=== PATIENT | female | born 1940 | race Caucasian/White ===

== ENCOUNTER 2017-10-15 09:11 | Inpatient (IN) ==
[~2017-10-15 09:11] MED LIST: LACTULOSE 20 GM/30 ML UDCUP PO PRN
[2017-10-15 09:42] LABS: Basophils % 0.5 % (0.0-0.8); Hematocrit 26.5 VOL% (35.7-47.0); Hemoglobin 8.9 GM/DL (12.0-16.0); Immature Granulocytes % 7.8 %; Immature Granulocytes Absolute 0.43 #; Lymphocytes # 1.2 10*3/uL (1.4-4.0); Lymphocytes % 22.2 % (21.3-54.2); Mean Corpuscular HGB Conc 33.6 GM/DL (32-36); Mean Corpuscular Hemoglobin 34 PG (27-34); Mean Corpuscular Volume 101.1 FL (87-102); Monocytes # 0.1 10*3/uL (0.11-0.8); Monocytes % 1.6 % (1.7-12.7); Neutrophils # 3.8 10*3/uL (1.4-7.4); Neutrophils % 67.9 % (38.7-73.9); Platelet Count 95 T/CUMM (130-400); Red Blood Count 2.62 MC/CUMM (3.8-5.5); Red Cell Distribution Width 18.3 % (9.3-17.3); White Blood Count 5.5 T/CUMM (4-12)
[2017-10-15] MEDS ORDERED: MEROPENEM 500 MG in SODIUM CHLORIDE 0.9% 100 ML IV STA (09:49)
[2017-10-15 10:00] LABS: Albumin 2.1 G/DL (3.4-5.0); Calcium 9.4 MG/DL (8.5-10.1); Osmolality,Calculated 274.4 MOS/KG (273-304); Potassium 4.2 MMOL/L (3.5-5.1); Total Protein 5.6 G/DL (6.4-8.3)
[2017-10-15 10:14] LABS: Band Neutrophils 3 % (0-10); Lymphocytes 33 % (20-55); Segmented Neutrophils 59 % (50-85); Total Cells Counted 100
[2017-10-15 10:18] LABS: Platelet Estimate Adequate
[2017-10-15] MEDS ORDERED: guaiFENesin 200 MG/10 ML UDCUP PO PRN (10:39)
[2017-10-15] MEDS ORDERED: MYLANTA/LIDO VISC 2:1 300 ML BOTTLE SWISH/SWAL PRN (10:39)
[2017-10-15] MEDS ORDERED: LOPERAMIDE 2 MG CAPSULE PO PRN ×2 (10:39)
[2017-10-15] MEDS ORDERED: MYLANTA/LIDO VISC 2:1 300 ML BOTTLE SWISH/SPIT PRN (10:39)
[2017-10-15] MEDS ORDERED: MAGNESIUM HYDROXIDE SUSP 30 ML UDCUP PO PRN (10:39)
[2017-10-15] MEDS ORDERED: chlorproMAZINE INJ 50 MG in SODIUM CHLORIDE 0.9% 100 ML IV PRN (10:39)
[2017-10-15] MEDS ORDERED: BENZTROPINE 2 MG/2 ML AMP IV PRN (10:39)
[2017-10-15] MEDS ORDERED: ALUMINUM/MAGNES/SIMETH MAX STR 30 ML UDCUP PO PRN (10:39)
[2017-10-15] MEDS ORDERED: chlorproMAZINE INJ 25 MG in SODIUM CHLORIDE 0.9% 100 ML IV PRN (10:39)
[2017-10-15] MEDS ORDERED: diphenhydrAMINE CAP 25 MG CAPSULE PO PRN (10:39)
[2017-10-15] MEDS ORDERED: chlorproMAZINE 25 MG TABLET PO PRN (10:39)
[2017-10-15] MEDS ORDERED: PROMETHAZINE INJ 25 MG in SODIUM CHLORIDE 0.9% 50 ML IV PRN (10:39)
[2017-10-15] MEDS ORDERED: ACETAMINOPHEN 325 MG TABLET PO PRN (10:39)
[2017-10-15] MEDS ORDERED: ALPRAZolam 0.25 MG TABLET PO PRN (10:39)
[2017-10-15] MEDS ORDERED: CLINDAMYCIN INJ 50 ML IV ONE (10:50)
[2017-10-15] MEDS: CLINDAMYCIN INJ 600 MG in PREMIX 1 EACH IV SCH ×3 (11:00→22:11)
[2017-10-15] MEDS ORDERED: traMADol 50 MG TABLET PO PRN (12:00)
[2017-10-15 12:26] LABS: Uric Acid 6.2 MG/DL (2.6-6.0)
[2017-10-15 16:24] LABS: Apearance,Urine Slightly Hazy (Clear); Bacteria,Urine Many /HPF (Few); Bilirubin,Urine Negative (Negative); Blood, Urine Small mg/dL (Negative); Glucose,Urine (UA) Negative (Negative); Ketones,Urine Negative (Negative); Mucus,Urine Occasional /LPF (Occasional); Nitrite,Urine Negative (Negative); Protein,Urine Negative; RBC,Urine 7 /HPF (0-4); Squamous Epithelial Cell,Urine Occasional /HPF (0-10); Urine Color Yellow (Yellow); Urine Specific Gravity 1.015 (1.001-1.035); Urine Urobilinogen < 2.0 EU/DL (0.2-1.0); WBC,Urine 1 /HPF (0-6)
[2017-10-15] MEDS: SODIUM CHLORIDE 0.9% 1,000 ML IV SCH (18:42)
[2017-10-15] MEDS ORDERED: TEMAZEPAM 7.5 MG CAPSULE PO PRN (21:00)
[2017-10-16] MEDS: CLINDAMYCIN INJ 600 MG in PREMIX 1 EACH IV SCH ×4 (04:42→22:51)
[2017-10-16 05:27] LABS: Basophils % 0.3 % (0.0-0.8); Hematocrit 20.6 VOL% (35.7-47.0); Hemoglobin 6.8 GM/DL (12.0-16.0); Immature Granulocytes % 0.8 %; Immature Granulocytes Absolute 0.03 #; Lymphocytes # 0.9 10*3/uL (1.4-4.0); Lymphocytes % 22.7 % (21.3-54.2); Mean Corpuscular Hemoglobin 34 PG (27-34); Mean Platelet Volume 10.6 FL (9.6-12.0); Monocytes # 0.1 10*3/uL (0.11-0.8); Monocytes % 1.8 % (1.7-12.7); Neutrophils % 74.4 % (38.7-73.9); Platelet Count 71 T/CUMM (130-400); Red Cell Distribution Width 18.4 % (9.3-17.3)
[2017-10-16] MEDS ORDERED: SODIUM CHLORIDE 0.9% 1,000 ML IV PRN (05:55)
[2017-10-16 06:08] LABS: Band Neutrophils 2 % (0-10); Lymphocytes 28 % (20-55); Macrocytosis 2+; Segmented Neutrophils 67 % (50-85); Total Cells Counted 100
[2017-10-16 06:09] LABS: Anisocytosis 1+
[2017-10-16 06:10] LABS: Platelet Estimate Decreased; Polychromasia Slight
[2017-10-16] MEDS: ONDANSETRON 4 MG/2 ML VIAL IV PRN (20:40)
[2017-10-16] MEDS: SODIUM CHLORIDE 0.9% 1,000 ML IV SCH (20:42)
[2017-10-16] MEDS: ZINC OXIDE PASTE 113 GM TUBE TOP SCH (22:53)
[2017-10-17] MEDS: CLINDAMYCIN INJ 600 MG in PREMIX 1 EACH IV SCH ×4 (04:09→22:29)
[2017-10-17 07:32] LABS: Basophils % 0.3 % (0.0-0.8); Hematocrit 27.8 VOL% (35.7-47.0); Hemoglobin 9.5 GM/DL (12.0-16.0); Immature Granulocytes % 0.6 %; Immature Granulocytes Absolute 0.02 #; Lymphocytes # 0.9 10*3/uL (1.4-4.0); Lymphocytes % 26.5 % (21.3-54.2); Mean Corpuscular HGB Conc 34.2 GM/DL (32-36); Mean Corpuscular Hemoglobin 32 PG (27-34); Mean Corpuscular Volume 94.6 FL (87-102); Mean Platelet Volume 10.7 FL (9.6-12.0); Monocytes # 0.1 10*3/uL (0.11-0.8); Monocytes % 1.5 % (1.7-12.7); Neutrophils # 2.4 10*3/uL (1.4-7.4); Neutrophils % 71.1 % (38.7-73.9); Platelet Count 67 T/CUMM (130-400); Red Blood Count 2.94 MC/CUMM (3.8-5.5); Red Cell Distribution Width 20.7 % (9.3-17.3); White Blood Count 3.3 T/CUMM (4-12)
[2017-10-17 08:45] LABS: Band Neutrophils 4 % (0-10); Hypochromasia 2+; Lymphocytes 10 % (20-55); Myelocytes 1 %; Platelet Estimate Decreased; Segmented Neutrophils 78 % (50-85); Target Cells Slight; Total Cells Counted 100
[2017-10-17] MEDS: ZINC OXIDE PASTE 113 GM TUBE TOP SCH ×2 (09:14→22:30)
[2017-10-17] MEDS: ONDANSETRON 4 MG/2 ML VIAL IV PRN (17:08)
[2017-10-17] MEDS: SODIUM CHLORIDE 0.9% 1,000 ML IV SCH (17:25)
[2017-10-18] MEDS: CLINDAMYCIN INJ 600 MG in PREMIX 1 EACH IV SCH ×4 (05:26→19:14)
[2017-10-18 06:57] LABS: Calcium 7.3 MG/DL (8.5-10.1); Osmolality,Calculated 272.8 MOS/KG (273-304); Potassium 3.8 MMOL/L (3.5-5.1)
[2017-10-18 07:08] LABS: Basophils % 0.5 % (0.0-0.8); Hematocrit 29.7 VOL% (35.7-47.0); Hemoglobin 9.9 GM/DL (12.0-16.0); Immature Granulocytes % 1.8 %; Immature Granulocytes Absolute 0.04 #; Lymphocytes # 0.5 10*3/uL (1.4-4.0); Lymphocytes % 24.3 % (21.3-54.2); Mean Corpuscular HGB Conc 33.3 GM/DL (32-36); Mean Corpuscular Hemoglobin 32 PG (27-34); Mean Corpuscular Volume 96.4 FL (87-102); Mean Platelet Volume 10.6 FL (9.6-12.0); Monocytes # 0.1 10*3/uL (0.11-0.8); Monocytes % 2.7 % (1.7-12.7); Neutrophils # 1.6 10*3/uL (1.4-7.4); Neutrophils % 70.7 % (38.7-73.9); Platelet Count 70 T/CUMM (130-400); Red Blood Count 3.08 MC/CUMM (3.8-5.5); Red Cell Distribution Width 19.9 % (9.3-17.3); White Blood Count 2.2 T/CUMM (4-12)
[2017-10-18 08:37] LABS: Band Neutrophils 5 % (0-10); Hypochromasia 2+; Lymphocytes 9 % (20-55); Microcytosis Slight; Platelet Estimate Decreased; Segmented Neutrophils 81 % (50-85); Total Cells Counted 100
[2017-10-18] MEDS: ZINC OXIDE PASTE 113 GM TUBE TOP SCH ×2 (13:02→21:03)
[2017-10-19] MEDS: CLINDAMYCIN INJ 600 MG in PREMIX 1 EACH IV SCH ×4 (01:39→20:27)
[2017-10-19] MEDS: SODIUM CHLORIDE 0.9% 1,000 ML IV SCH ×2 (01:41→13:48)
[2017-10-19 05:28] LABS: Basophils % 0.4 % (0.0-0.8); Hematocrit 29.2 VOL% (35.7-47.0); Hemoglobin 9.9 GM/DL (12.0-16.0); Immature Granulocytes % 0.9 %; Immature Granulocytes Absolute 0.02 #; Lymphocytes # 0.4 10*3/uL (1.4-4.0); Lymphocytes % 17.8 % (21.3-54.2); Mean Corpuscular HGB Conc 33.9 GM/DL (32-36); Mean Corpuscular Hemoglobin 32 PG (27-34); Mean Corpuscular Volume 93.9 FL (87-102); Mean Platelet Volume 10.1 FL (9.6-12.0); Monocytes % 1.8 % (1.7-12.7); Neutrophils # 1.8 10*3/uL (1.4-7.4); Neutrophils % 79.1 % (38.7-73.9); Platelet Count 66 T/CUMM (130-400); Red Blood Count 3.11 MC/CUMM (3.8-5.5); Red Cell Distribution Width 19.3 % (9.3-17.3); White Blood Count 2.3 T/CUMM (4-12)
[2017-10-19 05:56] LABS: Calcium 7.3 MG/DL (8.5-10.1); Osmolality,Calculated 277.5 MOS/KG (273-304); Potassium 3.7 MMOL/L (3.5-5.1)
[2017-10-19 05:57] LABS: Band Neutrophils 1 % (0-10); Giant Platelets Few; Hypochromasia 1+; Lymphocytes 14 % (20-55); Nucleated Red Blood Cells 1 (0-5); Platelet Estimate Decreased; Segmented Neutrophils 83 % (50-85); Total Cells Counted 100
[2017-10-19 05:58] LABS: Microcytosis Slight
[2017-10-19] MEDS: FILGRASTIM-SNDZ 300 MCG/0.5 ML SYRINGE SUBCUT SCH (09:35)
[2017-10-19] MEDS: ZINC OXIDE PASTE 113 GM TUBE TOP SCH ×2 (09:35→20:37)
[2017-10-19] MEDS ORDERED: ACETAMINOPHEN 325 MG/10.15 ML UDCUP PO PRN (11:30)
[2017-10-20] MEDS: CLINDAMYCIN INJ 600 MG in PREMIX 1 EACH IV SCH ×4 (00:41→18:55)
[2017-10-20] MEDS: ZINC OXIDE PASTE 113 GM TUBE TOP SCH ×2 (10:53→21:48)
[2017-10-20] MEDS: FILGRASTIM-SNDZ 300 MCG/0.5 ML SYRINGE SUBCUT SCH (10:54)
[2017-10-20] MEDS: SODIUM CHLORIDE 0.9% 1,000 ML IV SCH (11:22)
[2017-10-21] MEDS: CLINDAMYCIN INJ 600 MG in PREMIX 1 EACH IV SCH ×4 (01:24→18:47)
[2017-10-21] MEDS: ZINC OXIDE PASTE 113 GM TUBE TOP SCH ×2 (09:03→20:16)
[2017-10-21] MEDS: SODIUM CHLORIDE 0.9% 1,000 ML IV SCH (09:03)
[2017-10-21] MEDS: FILGRASTIM-SNDZ 300 MCG/0.5 ML SYRINGE SUBCUT SCH (09:03)
[2017-10-22] MEDS: CLINDAMYCIN INJ 600 MG in PREMIX 1 EACH IV SCH ×2 (01:19→06:11)
[2017-10-22] MEDS: ZINC OXIDE PASTE 113 GM TUBE TOP SCH (10:30)
[2017-10-22 11:08] VITALS: BP 97/42
[2017-10-22] MEDS: SODIUM CHLORIDE 0.9% 1,000 ML IV SCH (11:18)
== END 2017-10-22 11:35 | disposition hospice, home (50) | DRG 602 ==
LOC: EDBD → EDUNIT# → N.ED 09:11 → N.EDINP 10:38 → N.4E 11:13
PROVIDERS: ADMIT Specialist; ATTEND Specialist